=== PATIENT | male | born 1955 | race Caucasian/White ===

== ENCOUNTER 2021-05-29 09:35 | Outpatient (RCR) | payer MEDICARE, SELFPAY ==
[2021-05-29 10:09] LABS: Absolute Basophil Count 0.18 10^3/uL (0.0-0.2); Absolute Eosinophil Count 0.26 10^3/uL (0.0-0.7); Absolute Lymphocyte Count 2.23 10^3/uL (1.2-3.4); Absolute Monocyte Count 1.37 10^3/uL (0.1-0.8); Absolute Neutrophil Count 12.16 10^3/uL (1.2-6.7); Basophils % 1.1; Eosinophils % 1.6; HCT 50.6 % (40.0-50.0); HGB 15.2 g/dL (13.5-17.5); Immature Grans % 0.6; Lymphocytes % 13.7; MCH 22.6 pg (27.0-33.0); MCV 75.2 fL (80-95); Monocytes % 8.4; Neutrophils % 74.6; Nucleated RBC 0 %; Platelet Count 447 10^3/uL (130-400); RBC 6.73 10^6/uL (4.36-5.78); RDW 18.4 % (11.8-14.1); RDW-SD 45.3 fL
== END 2021-06-02 23:59 | disposition home or self-care (01) ==
LOC: INF 09:35
PROVIDERS: Visit Provider Internal Medicine Hematology & Oncology
DX: D45 Polycythemia vera (principal)
CPT/HCPCS: 36415; 99195; 85025

== ENCOUNTER 2021-06-26 02:40 | Outpatient (RCR) | payer MEDICARE, SELFPAY ==
[2021-06-26 07:14] LABS: HGB 13.9 g/dL (13.5-17.5); MCH 22.8 pg (27.0-33.0); MCHC 30.2 % (32.0-36.0); MCV 75.5 fL (80-95); Platelet Count 183 10^3/uL (130-400); RDW 20.7 % (11.8-14.1); RDW-SD 51.8 fL; WBC 12.61 10^3/uL (4.4-10.8)
[2021-06-26 07:19] LABS: RBC 6.09 10^6/uL (4.36-5.78)
== END 2021-07-03 23:59 | disposition home or self-care (01) ==
LOC: INF 02:40
PROVIDERS: Visit Provider Internal Medicine Hematology & Oncology
DX: D45 Polycythemia vera (principal)
CPT/HCPCS: 36415; 85027; 99195

== ENCOUNTER 2021-07-24 01:57 | Outpatient (RCR) | payer MEDICARE, SELFPAY ==
[2021-07-24] MEDS: Normal Saline Flush 10 ML SYR IVP (07:37)
[2021-07-24 07:39] LABS: HCT 46.7 % (40.0-50.0); HGB 14.5 g/dL (13.5-17.5); MCH 24.3 pg (27.0-33.0); MCV 78.2 fL (80-95); RBC 5.97 10^6/uL (4.36-5.78); RDW 25.2 % (11.8-14.1); RDW-SD 67.1 fL; WBC 14.82 10^3/uL (4.4-10.8)
[2021-07-24 07:53] LABS: Platelet Count 166 10^3/uL (130-400)
== END 2021-08-02 23:59 | disposition home or self-care (01) ==
LOC: INF 01:57
PROVIDERS: Visit Provider Internal Medicine Hematology & Oncology
DX: D45 Polycythemia vera (principal)
CPT/HCPCS: 36415; 85027; 99195

== ENCOUNTER 2021-08-28 02:58 | Outpatient (RCR) | payer MEDICARE, SELFPAY ==
[2021-08-28 10:05] LABS: HGB 13.6 g/dL (13.5-17.5); MCH 26.3 pg (27.0-33.0); MCHC 31.3 % (32.0-36.0); MCV 84 fL (80-95); Platelet Count 422 10^3/uL (130-400); RDW 25.3 % (11.8-14.1); RDW-SD 75.7 fL
[2021-08-28 10:08] LABS: HCT 43.4 % (40.0-50.0)
[2021-08-28 10:22] LABS: RBC 5.17 10^6/uL (4.36-5.78)
[2021-08-28 10:23] LABS: WBC 10.79 10^3/uL (4.4-10.8)
== END 2021-09-02 23:59 | disposition home or self-care (01) ==
LOC: INF 02:58
PROVIDERS: Visit Provider Internal Medicine Hematology & Oncology
DX: D45 Polycythemia vera (principal)
CPT/HCPCS: 36415; 85027

== ENCOUNTER 2021-08-28 03:20 | Outpatient (CLI) | payer MEDICARE, SELFPAY | END 2021-08-28 03:21 | disposition home or self-care (01) | LOC: LBO 03:20 | PROVIDERS: Visit Provider Internal Medicine Hematology & Oncology ==

== ENCOUNTER 2021-09-25 03:04 | Outpatient (RCR) | payer MEDICARE, SELFPAY ==
[2021-09-25 08:38] LABS: HCT 46.7 % (40.0-50.0); HGB 15.3 g/dL (13.5-17.5); MCH 28.6 pg (27.0-33.0); MCHC 32.8 % (32.0-36.0); MCV 87 fL (80-95); MPV 11.6 fL (8.0-11.0); Platelet Count 409 10^3/uL (130-400); RBC 5.35 10^6/uL (4.36-5.78); RDW-SD 72.9 fL
[2021-09-25 09:07] LABS: RDW 23.4 % (11.8-14.1); WBC 10.75 10^3/uL (4.4-10.8)
== END 2021-10-02 23:59 | disposition home or self-care (01) ==
LOC: INF 03:04
PROVIDERS: Visit Provider Internal Medicine Hematology & Oncology
DX: D45 Polycythemia vera (principal)
CPT/HCPCS: 36415; 85027; 99195